=== PATIENT | female | born 1970 | race Caucasian/White ===

== ENCOUNTER 2025-03-30 19:30 | Emergency (ER) | payer SELFPAY ==
[~2025-03-30 19:30] MED LIST: Iopamidol 370 76% 100 ML VIAL ONE
[2025-03-30] MEDS ORDERED: Famotidine 20 MG TAB ONE (19:49)
[2025-03-30] MEDS ORDERED: Albuterol 2.5 MG (3 mL) NEB ONE ×2 (19:55→21:39)
[2025-03-30 20:19] LABS: #Basophils 0.08 10x3/uL (0.0-0.2); #Eosinophils 0.17 10x3/uL (0.0-0.5); #Monocytes 0.79 10x3/uL (0.0-1.1); #Neutrophils 5.58 10x3/uL (1.5-8.4); %Basophils 1.0 % (0.0-2.0); %Eosinophils 2.1 % (0.0-6.0); %Lymphocytes 19.7 % (18.0-47.0); %Monocytes 9.5 % (0.0-10.0); %Neutrophils 67.3 % (40.0-75.0); Hematocrit 53.0 % (34.9-44.5); Hemoglobin 18.1 g/dL (12.0-15.5); Mean Corpuscular Hemoglobin 32.5 pg (27.0-33.0); Mean Corpuscular Volume 95.2 fL (81.6-98.3); Platelet Count 190 10x3/uL (150-450); Red Blood Cell (RBC) Count 5.57 10x6/uL (3.90-5.03); White Blood Cell (WBC) Count 8.28 10x3/uL (3.5-10.5)
[2025-03-30 20:34] LABS: ALT (SGPT) 72 U/L (Less than 34); AST (SGOT) 107 U/L (11-34); Albumin 3.5 g/dL (3.1-4.5); Alkaline Phosphatase 100 U/L (40-110); Anion Gap 14 mmol/L (10-20); BUN (Urea Nitrogen) 9 mg/dL (9.8-20.1); Bilirubin, Total 0.6 mg/dL (0.3-1.2); Calc. Creatinine Clearance 0 mL/min (70-130); Calcium 8.9 mg/dL (7.8-10.44); Carbon Dioxide 25 mmol/L (22-29); Chloride 102 mmol/L (98-107); Globulin 4.3 g/dL (2.4-3.5); Glucose 127 mg/dL (70-105); Potassium 4.5 mmol/L (3.5-5.1); Sodium 136 mmol/L (136-145)
[2025-03-30 20:37] LABS: Troponin I Less than 0.010 ng/mL (< 0.028)
[2025-03-30] MEDS ORDERED: Furosemide 40 MG (4 mL) VIAL ONE (20:49)
== END 2025-03-30 22:49 | disposition home or self-care (01) ==
LOC: CSHERS 19:30
DX: J20.9 Acute bronchitis, unspecified (principal); F41.1 Generalized anxiety disorder; I16.0 Hypertensive urgency; R29.700 NIHSS score 0; I10 Essential (primary) hypertension; F17.210 Nicotine dependence, cigarettes, uncomplicated; Z79.899 Other long term (current) drug therapy
CPT/HCPCS: 36415; 70450; 71045; 71275; 80053; 83880; 84484; 85025; 87428; 93005; 94640; 94644; 94760; 96374; 96375; J1940; J2919; J3360; J7611; Q9967